=== PATIENT | male | born 1980 | race Two or more races ===

== ENCOUNTER 2017-12-16 10:49 | Emergency (ER) | payer MEDICAID ==
[~2017-12-16] VITALS: Ht 177.8 cm; Wt 88.5 kg
[2017-12-16] MEDS ORDERED: LORazepam Inj 2mg/ml 1ml ONE (11:10)
[2017-12-16] MEDS ORDERED: LORazepam Inj 2mg/ml 1ml IV ONE (11:30)
[2017-12-16 11:33] LABS: HEMATOCRIT 45.3 % (42.0-52.0); HEMOGLOBIN 15.5 G/DL (14.2-18.0); MEAN CORPUSCULAR VOLUME 85 FL (80-99); PLATELET COUNT 201 K/UL (150-450); RED BLOOD COUNT 5.36 M/UL (4.70-6.10); RED CELL DISTRIBUTION WIDTH 12.1 % (11.6-14.8); WHITE BLOOD COUNT 8.4 K/UL (4.8-10.8)
[2017-12-16 11:53] LABS: POTASSIUM 3.5 MMOL/L (3.5-5.1); SODIUM 137 MMOL/L (136-145)
[2017-12-16 11:58] LABS: ANION GAP 13 mmol/L (5-15); BLOOD UREA NITROGEN 20 mg/dL (7-18); CALCIUM 8.9 MG/DL (8.5-10.1); CARBON DIOXIDE 24 MMOL/L (21-32); CHLORIDE 101 MMOL/L (98-107); CREATININE 1.5 MG/DL (0.55-1.30)
[2017-12-16] MEDS ORDERED: Metoprolol 5mg/5ml Inj IVP SCH (12:00)
--- NOTE | 2017-12-16 12:00 | Emergency Room Report ---
History of Present Illness General Chief Complaint: General Complaint Source: Patient Present Illness HPI This patient c/o feeling agitated, upset. Uses meth, heroin. Denies trauma, fever. Denies cp, sob, abd pain. +nausea. Hx. limited due to clinical condition. Allergies: Coded Allergies: PENICILLINS (Verified Allergy, Unknown, 12/16/17) Nursing Documentation-PMH Hx Asthma: Yes Review of Systems Constitutional: Reports: no symptoms Eye: Reports: no symptoms ENT: Reports: no symptoms Respiratory: Reports: no symptoms Cardiovascular: Reports: no symptoms Gastrointestinal: Reports: nausea Genitourinary: Reports: no symptoms Musculoskeletal: Reports: no symptoms Skin: Reports: no symptoms Psychiatric: Reports: no symptoms Neurological: Reports: no symptoms Endocrine: Reports: no symptoms Hematologic/Lymphatic: Reports: no symptoms Allergic: Reports: no symptoms Physical Exam Vital Signs Date Time Temp Pulse Resp B/P (MAP) Pulse Ox O2 Delivery O2 Flow Rate FiO2 12/16/17 10:47 100.5 110 23 100/60 98 Room Air 100.6 Sp02 EP Interpretation: reviewed, normal General Appearance: normal inspection, alert, GCS 15, other - agitated Head: normocephalic, atraumatic Eyes: bilateral eye normal inspection, bilateral eye PERRL, bilateral eye EOMI ENT: normal ENT inspection, hearing grossly normal, normal pharynx, no angioedema, normal voice, moist mucus membranes Neck: normal inspection, full range of motion, supple, no meningismus, no bony tend Respiratory: normal inspection, lungs clear, normal breath sounds, no rhonchi, no respiratory distress, no retraction, no accessory muscle use, no wheezing Cardiovascular #1: normal inspection, no edema, tachycardia Gastrointestinal: normal inspection, normal bowel sounds, non tender, soft, no mass, non-distended Musculoskeletal: gait/station normal, normal range of motion Neurologic: normal inspection, alert, oriented x3, responsive, motor strength/ tone normal Psychiatric: anxious, other - agitated, intoxicated (high) Suicide Risk Assessment: Suicidal Ideation: No Had intent to initiate attempt: No Pt's plan for suicide attempt: No Has means to complete attempt: No Skin: normal inspection, normal color, no rash, warm/dry Medical Decision Making Diagnostic Impression: Primary Impression: Methamphetamine abuse Additional Impression: Hyperbilirubinemia ER Course fell asleep after ativan. when awake he is much less agitated. hr still tachy 130. iv lopressor ordered. pt. informed of bilirubin slight elevation. pt. informed should repeat in 1-2 weeks. pt. advised to d/c street drug use. 2 pm: sleeping, when i wake him he is not suicidal, he just wants to sleep, quit drugs. 230 pm: HR 112, currently sleeping. earlier was awake, cognitively intact. anticipate d/c within a few hours. EKG Diagnostic Results EKG Time: 11:58 Rate: tachycardiac ST Segments: no acute changes Other Impression sinus 140, left axis, PRWP ASA given to the pt in ED: No Rhythm Strip Diag. Results Rhythm Strip Time: 11:59 EP Interpretation: yes Rate: sinus tach Chest X-Ray Diagnostic Results Chest X-Ray Diagnostic Results : Chest X-Ray Ordered: Yes # of Views/Limited/Complete: 1 View Indication: Chest Pain EP Interpretation: Yes Interpretation: no consolidation, no effusion, no pneumothorax, no acute cardiopulmonary disease Last Vital Signs Date Time Temp Pulse Resp B/P (MAP) Pulse Ox O2 Delivery O2 Flow Rate FiO2 12/16/17 10:47 100.5 110 23 100/60 98 Room Air 100.6 Status: improved Disposition: HOME, SELF-CARE Patient Instructions: Bilirubin Test, Substance Use Disorder Ignacio Garcia M.D. Dec 16, 2017 12:00
[2017-12-16 12:18] LABS: ALANINE AMINOTRANSFERASE 39 U/L (12-78); ALBUMIN/GLOBULIN RATIO 1.2 (1.0-2.7); ALKALINE PHOSPHATASE 78 U/L (46-116); ASPARTATE AMINO TRANSFERASE 55 U/L (15-37); BILIRUBIN,TOTAL 2.2 MG/DL (0.2-1.0); CREATINE KINASE 524 U/L (26-308)
[2017-12-16 12:23] LABS: BILIRUBIN,DIRECT 0.9 MG/DL (0.0-0.3)
[2017-12-16 13:00] VITALS: BP 119/66
[2017-12-16 15:00] VITALS: BP 105/79
[2017-12-16 17:00] VITALS: BP 108/80
[2017-12-16 19:00] VITALS: BP 104/50
[2017-12-16 19:33] VITALS: BP 104/50
== END 2017-12-16 19:30 | disposition home or self-care (01) ==
LOC: EDBD 10:49 → EMR 12:42
DX: F15.10 Other stimulant abuse, uncomplicated (principal); E80.6 Other disorders of bilirubin metabolism; Z88.0 Allergy status to penicillin; F11.10 Opioid abuse, uncomplicated
CPT/HCPCS: 36415; 80053; 80329; 82248; 82550; 83690; 85007; 85025; 96361; 96374; 96375; 99284; J2405